=== PATIENT | male | born 1950 | race Caucasian/White ===

== ENCOUNTER 2017-02-28 09:19 | Outpatient (CLI) | payer MEDICARE, OTHER ==
[~2017-02-28] VITALS: Ht 175.3 cm; Wt 114.3 kg
[2017-02-28] VITALS (7 sets, daily range): BP systolic 113–137; BP diastolic 73–88; PULSE 54–79
[~2017-02-28 09:19] MED LIST: CELEXA 20MG20 MG/TAB PO; CIPRO 500MG TA500 MG PO; CITALOPRAM40 MG PO; CLARITIN 1010 MG/TAB PO; GABAPENTIN TAB600 MG PO; HCTZ 25MG TAB25 MG PO; LISINOPRIL40 MG PO; MORPHINE SULFA100 M1 PO; MS CONTIN100 MG PO; MSIR30 MG PO; PAXIL40 MG PO; PERCOCET 325 MG1 TAB PO; PRINIVIL40 MG PO; SENOKOT S 50 MG1 TAB PO
[2017-02-28] MEDS ORDERED: CHANTIX 1MG1 MG PO (09:35)
== END 2017-02-28 12:03 | disposition home or self-care (01) ==
LOC: COL.RAD 09:19
DX: M51.36 Other intervertebral disc degeneration, lumbar region (principal); M48.06 Spinal stenosis, lumbar region
CPT/HCPCS: Q9965

== ENCOUNTER → 2018-04-12 | Outpatient (CLI) | payer MEDICARE, OTHER ==
[~2018-04-12] MED LIST changes: +CHANTIX 1MG1 MG PO
== END ==
LOC: COL.RAD 09:02
DX: C61 Malignant neoplasm of prostate (principal); E27.8 Other specified disorders of adrenal gland
CPT/HCPCS: A9503; Q9967

== ENCOUNTER 2018-04-18 21:21 | Observation (INO) | payer MEDICARE, OTHER ==
[~2018-04-18] VITALS: Ht 175.3 cm; Wt 114.8 kg
[2018-04-18 21:45] LABS: BASO % 0.2 % (0.0-2.0); EOS # 0.4 (0.0-0.7); EOS % 3.4 % (0-4.0); GRAN # 8.6 (1.4-6.5); GRAN % 67.8 % (42.2-75.2); HEMOGLOBIN 11.4 g/dl (13.5-18.0); LYMPH # 2.6 (1.2-3.4); LYMPH % 20.4 % (20.0-51.0); MEAN CELL VOLUME 96 fl (80.0-100.0); MEAN CORPUSCULAR HEMOGLOBIN 32 pg (27.0-31.0); MEAN CORPUSCULAR HGB CONC 33 g/dl (33.0-37.0); MEAN PLATELET VOLUME 9.1 fl (7.4-10.4); MONO % 7.8 % (1.7-9.3); PLATELET COUNT 179 K/mm3 (130-400); REDCELL DISTRIBUTION WIDTH-CV 13.2 % (11.5-14.5)
[2018-04-18 21:46] LABS: HEMATOCRIT 34.4 % (42.0-52.0)
[2018-04-18 21:54] LABS: ALBUMIN 4.3 gm/dL (3.5-5.0); BILIRUBIN,TOTAL 0.7 mg/dL (0.0-1.0); CALCIUM 9.1 mg/dL (8.4-10.2); POTASSIUM 4.8 mmol/L (3.4-5.0); TOTAL PROTEIN 7.6 gm/dL (6.4-8.2)
[2018-04-18 22:00] LABS: CREATININE, serum 4.7 mg/dL (0.66-1.25)
[2018-04-18 22:06] LABS: TROPONIN-I 0.013 ng/mL (0.000-0.034)
[2018-04-18 22:27] LABS: COLLECTION METHOD CATHETER
[2018-04-18 22:34] LABS: MUCOUS Present /lpf; PH 5 (5-8); SQUAMOUS EPITHELIAL 0-2 /hpf; URINE APPEARANCE Cloudy; URINE BACTERIA None Seen /hpf; URINE BILIRUBIN Negative (NEGATIVE); URINE BLOOD 2+ (NEGATIVE); URINE COLOR Yellow; URINE GLUCOSE Negative (NEGATIVE); URINE KETONE Negative (NEGATIVE); URINE LEUKOCYTE ESTERASE Negative (NEGATIVE); URINE NITRATE Negative (NEGATIVE); URINE PROTEIN(semi-quant) 2+ (NEGATIVE); URINE UROBILINOGEN Negative (NEGATIVE)
[2018-04-18] MEDS ORDERED: CRESTOR20 MG PO (23:05)
[2018-04-18] MEDS ORDERED: FLEXERIL 1010 MG/TAB PO (23:07)
[2018-04-19] VITALS (1129 sets, daily range): BP systolic 82–135; BP diastolic 52–74; PULSE 57–98; TEMP 98–99.4; O2SAT 73–100
[2018-04-19] MEDS ORDERED: HCTZ 25MG TAB25 MG PO (01:08)
[2018-04-19 05:32] LABS: BASO % 0.3 % (0.0-2.0); EOS # 0.3 (0.0-0.7); EOS % 2.7 % (0-4.0); GRAN # 6.4 (1.4-6.5); GRAN % 65.5 % (42.2-75.2); HEMOGLOBIN 10.8 g/dl (13.5-18.0); LYMPH # 2.3 (1.2-3.4); LYMPH % 23.4 % (20.0-51.0); MEAN CELL VOLUME 96 fl (80.0-100.0); MEAN CORPUSCULAR HEMOGLOBIN 32 pg (27.0-31.0); MEAN CORPUSCULAR HGB CONC 33 g/dl (33.0-37.0); MEAN PLATELET VOLUME 8.9 fl (7.4-10.4); MONO # 0.8 (0.1-0.6); MONO % 7.8 % (1.7-9.3); PLATELET COUNT 163 K/mm3 (130-400); RED BLOOD COUNT 3.43 M/mm3 (4.20-5.60); REDCELL DISTRIBUTION WIDTH-CV 13.2 % (11.5-14.5)
[2018-04-19 05:43] LABS: CALCIUM 8.3 mg/dL (8.4-10.2); POTASSIUM 4.1 mmol/L (3.4-5.0)
[2018-04-19 18:42] LABS: URINE PROTEIN:CREAT RATIO 0.44 (0.00-0.14)
[2018-04-20] VITALS (648 sets, daily range): BP systolic 125–159; BP diastolic 66–89; PULSE 54–94; TEMP 98–98.5; O2SAT 89–100
[2018-04-20 05:56] LABS: BASO % 0.3 % (0.0-2.0); EOS % 0.3 % (0-4.0); GRAN # 5.7 (1.4-6.5); HEMOGLOBIN 10.7 g/dl (13.5-18.0); LYMPH # 1.2 (1.2-3.4); MEAN CELL VOLUME 94 fl (80.0-100.0); MEAN CORPUSCULAR HEMOGLOBIN 31 pg (27.0-31.0); MEAN CORPUSCULAR HGB CONC 33 g/dl (33.0-37.0); MEAN PLATELET VOLUME 9.2 fl (7.4-10.4); MONO # 0.5 (0.1-0.6); MONO % 7.1 % (1.7-9.3); PLATELET COUNT 147 K/mm3 (130-400); RED BLOOD COUNT 3.42 M/mm3 (4.20-5.60); REDCELL DISTRIBUTION WIDTH-CV 12.7 % (11.5-14.5)
[2018-04-20 06:00] LABS: HEMATOCRIT 32.1 % (42.0-52.0)
[2018-04-20 06:08] LABS: ALBUMIN 3.6 gm/dL (3.5-5.0); BILIRUBIN,TOTAL 0.5 mg/dL (0.0-1.0); CALCIUM 8.8 mg/dL (8.4-10.2); CREATININE, serum 0.82 mg/dL (0.66-1.25); POTASSIUM 4.2 mmol/L (3.4-5.0); TOTAL PROTEIN 6.9 gm/dL (6.4-8.2)
[2018-04-21 03:26] VITALS: BP 142/85; PULSE 83; TEMP 98.4
[2018-04-21 07:32] LABS: BASO % 0.3 % (0.0-2.0); EOS # 0.1 (0.0-0.7); GRAN # 4.3 (1.4-6.5); GRAN % 69.6 % (42.2-75.2); HEMOGLOBIN 10.6 g/dl (13.5-18.0); LYMPH # 1.4 (1.2-3.4); MEAN CELL VOLUME 93 fl (80.0-100.0); MEAN CORPUSCULAR HEMOGLOBIN 31 pg (27.0-31.0); MEAN CORPUSCULAR HGB CONC 33 g/dl (33.0-37.0); MEAN PLATELET VOLUME 9.8 fl (7.4-10.4); MONO # 0.4 (0.1-0.6); MONO % 6.6 % (1.7-9.3); PLATELET COUNT 157 K/mm3 (130-400); RED BLOOD COUNT 3.42 M/mm3 (4.20-5.60); REDCELL DISTRIBUTION WIDTH-CV 12.6 % (11.5-14.5)
[2018-04-21 07:35] LABS: HEMATOCRIT 31.8 % (42.0-52.0)
[2018-04-21 07:42] LABS: ALBUMIN 3.5 gm/dL (3.5-5.0); CALCIUM 8.6 mg/dL (8.4-10.2); CREATININE, serum 0.75 mg/dL (0.66-1.25); PHOSPHOROUS 2.3 mg/dL (2.5-4.5); POTASSIUM 3.7 mmol/L (3.4-5.0)
[2018-04-21 07:53] VITALS: BP 162/96; PULSE 77; TEMP 98.2
== END 2018-04-21 12:05 | disposition home or self-care (01) ==
LOC: COL.ER 21:21 → ICU 22:51 → MEDICAL 04-20 13:31
PROVIDERS: Emergency Medicine; Hospitalist; Internal Medicine
DX: G93.41 Metabolic encephalopathy (principal); M62.82 Rhabdomyolysis; D64.9 Anemia, unspecified; R80.9 Proteinuria, unspecified; R70.0 Elevated erythrocyte sedimentation rate; G89.29 Other chronic pain; E78.5 Hyperlipidemia, unspecified; I10 Essential (primary) hypertension; N28.9 Disorder of kidney and ureter, unspecified; I95.9 Hypotension, unspecified; D72.829 Elevated white blood cell count, unspecified; E87.1 Hypo-osmolality and hyponatremia; F32.9 Major depressive disorder, single episode, unspecified; R53.81 Other malaise; Z90.79 Acquired absence of other genital organ(s); Z85.46 Personal history of malignant neoplasm of prostate; Z87.891 Personal history of nicotine dependence; Z83.3 Family history of diabetes mellitus
CPT/HCPCS: 99223-AI; 99233-AI; G0378; G8978-GP; G8979-GP; J1650; J7030

== ENCOUNTER 2020-08-11 05:27 | Day surgery (SDC) | payer MEDICARE, OTHER, BC ==
[2020-08-11] VITALS (7 sets, daily range): BP systolic 120–155; BP diastolic 63–90; PULSE 48–91; TEMP 97.8–98.3
[~2020-08-11] VITALS: Ht 175.3 cm; Wt 104.5 kg
[~2020-08-11 05:27] MED LIST changes: +CRESTOR20 MG PO; +FLEXERIL 1010 MG/TAB PO
[2020-08-11] MEDS ORDERED: CYMBALTA 60MG60 MG PO (05:52)
[2020-08-11] MEDS ORDERED: MOBIC15 MG PO (05:53)
[2020-08-11] MEDS ORDERED: PRINIVIL40 MG PO (05:53)
[2020-08-11] MEDS ORDERED: HCTZ 25MG TAB25 MG PO (05:54)
[2020-08-11] MEDS ORDERED: MS CONTIN 330 MG/TAB PO ×2 (05:56→05:59)
[2020-08-11] MEDS ORDERED: MS CONTIN100 MG PO (05:57)
--- NOTE | 2020-08-11 08:50 | NUR ---
Patient returns to room 8 per cart from PACU accompanied by Raya ALONSO. Patient is awake and alert. Temp 97.6 and room air sats 97%. IV fluids infusing and site is free of redness. Siderails up x2. States that he is needing up to the bathroom and IV fluids converted to INT. Ambulatory across the hallway to the bathroom and gait steady. Complains of low back pain when laying on the cart.
--- NOTE | 2020-08-11 09:15 | NUR ---
Returns to room after voiding. Warm blanket applied to low back. Sipping on apple juice and eating apple sauce.
--- NOTE | 2020-08-11 09:30 | NUR ---
Resting and states that he is having less back pain.
--- NOTE | 2020-08-11 09:45 | NUR ---
Resting and awaits spouse to arrive for ride home.
--- NOTE | 2020-08-11 10:00 | NUR ---
Spouse here. INT needle discontinued and site is free of redness. Ambulatory back to the bathroom.
--- NOTE | 2020-08-11 10:20 | NUR ---
Patient has voided x2. Dressed and dismissal instructions given with follow up appointment date and time. Patient dismissed to home driven by spouse and taken to the front door per wheelchair by Jimmy ALONSO and assisted into vehicle with instructions in hand.
== END 2020-08-11 10:20 | disposition home or self-care (01) ==
LOC: SDCO 05:27
DX: C61 Malignant neoplasm of prostate (principal); I10 Essential (primary) hypertension; F17.210 Nicotine dependence, cigarettes, uncomplicated; Z91.041 Radiographic dye allergy status; G89.29 Other chronic pain; M19.90 Unspecified osteoarthritis, unspecified site; F32.9 Major depressive disorder, single episode, unspecified; F41.9 Anxiety disorder, unspecified
CPT/HCPCS: C1769; J1170; J2405; J2704; J3010; J7120; Q9967